=== PATIENT | female | born 1945 | race African-American/Black ===

== ENCOUNTER 2021-05-28 21:42 | Emergency (ER) | payer OTHER ==
[~2021-05-28] VITALS: Ht 154.9 cm; Wt 45.5 kg
[~2021-05-28 21:42] MED LIST: ATENOLOL
[2021-05-28] MEDS ORDERED: SODIUM CHLORIDE 0.9% 1,000 ML IV ONE (23:30)
[2021-05-28] MEDS ORDERED: ONDANSETRON HCL 4MG/2ML INJ IV NR (23:45)
[2021-05-28] MEDS ORDERED: MORPHINE SULFATE 4 MG/ML CPJ (NOT FOR IM USE) IV NR (23:45)
[2021-05-29 00:16] LABS: BASOPHILS % 1.1 % (0.0-2.0); EOSINOPHILS % 1.7 % (0.0-5.0); HEMATOCRIT. 37.3 % (36.0-48.0); LYMPHOCYTES % 33.5 % (20.0-50.0); MEAN CORPUSCULAR HEMOGLOBIN 22.8 pg (28.0-32.0); MEAN CORPUSCULAR VOLUME 70.7 fL (81.0-99.0); MEAN PLATELET VOLUME 8.9 fl (7.4-10.4); MONOCYTES % 4.6 % (2.0-8.0); NEUTROPHILS % 59.1 % (40.0-76.0); PLATELET 116 x1000/uL (130-400); RED BLOOD CELL COUNT 5.28 mill/uL (4.2-5.4); RED CELL DISTRIBUTION WIDTH 18.9 % (11.6-14.6)
[2021-05-29 00:23] LABS: CLARITY URINE CLEAR (CLEAR); COLOR URINE YELLOW (YELLOW); KETONES URINE TRACE (NEGATIVE); LEUKOCYTE ESTERASE URINE NEGATIVE (NEGATIVE); NITRITE URINE NEGATIVE (NEGATIVE); OCCULT BLOOD URINE NEGATIVE (NEGATIVE); PROTEIN URINE NEGATIVE (NEGATIVE); SPECIFIC GRAVITY URINE 1.007 (1.005-1.030); UROBILINOGEN URINE 0.2 E.U./dL (0.2-1.0)
[2021-05-29 00:24] LABS: CHLORIDE 103 mEq/L (98-107)
[2021-05-29] MEDS ORDERED: ONDA4TAB5 MT (03:57)
[2021-05-29] MEDS ORDERED: IBUP-2028 MT (03:57)
[2021-05-29 10:18] VITALS: BP 147/82
== END 2021-05-29 10:20 | disposition home or self-care (01) ==
LOC: ER 21:42
DX: R10.30 Lower abdominal pain, unspecified (principal); R51.9 Headache, unspecified; E11.9 Type 2 diabetes mellitus without complications; I10 Essential (primary) hypertension; F41.9 Anxiety disorder, unspecified; Z79.899 Other long term (current) drug therapy; E86.0 Dehydration
CPT/HCPCS: 36415; 70450; 71045; 74176; 80053; 81003; 83605; 83690; 85025; 93005; 96361; 96374; 96375; 99285; J2270; J2405